=== PATIENT | female | born 1970 | race Caucasian/White ===

== ENCOUNTER 2024-09-01 20:15 | Emergency (ER) | payer MEDICAID ==
[~2024-09-01] VITALS: Ht 170.2 cm; Wt 78.0 kg
[2024-09-01 20:20] VITALS: BP 109/70; PULSE 111; RESP 18; TEMP 97.8; O2SAT 98
[2024-09-01] MEDS: LIDOCAINE 5% PATCH TOP SCH (22:30)
[2024-09-01] MEDS ORDERED: HYDROCODONE/ACETAMINOPHEN 5/325MG TABLET PO ONE (22:30)
[2024-09-01] MEDS: CYCLOBENZAPRINE 10MG TABLET PO ONE (22:30)
[2024-09-02] MEDS ORDERED: LIDO700A15 TP (00:23)
[2024-09-02] MEDS ORDERED: CYCL10TA21 MT (00:23)
[2024-09-02] MEDS ORDERED: NAPR-1176 MT (00:23)
[2024-09-02] MEDS: HYDROCODONE/ACETAMINOPHEN 5/325MG TABLET PO NR (01:15)
[2024-09-02] MEDS: CYCLOBENZAPRINE 10MG TABLET PO NR (01:15)
== END 2024-09-02 01:46 | disposition home or self-care (01) ==
LOC: ER 20:15
DX: G89.29 Other chronic pain (principal); M54.6 Pain in thoracic spine; R25.2 Cramp and spasm; I10 Essential (primary) hypertension; J45.909 Unspecified asthma, uncomplicated; Z79.1 Long term (current) use of non-steroidal anti-inflammatories (NSAID)
CPT/HCPCS: 99283